=== PATIENT | male | born 1955 | race Caucasian/White ===

== ENCOUNTER → 2016-11-30 | Outpatient (CLI) | payer OTHER | LOC: KOH-I 10:52 | DX: R05 Cough (principal); R06.2 Wheezing | CPT/HCPCS: 71020 ==

== ENCOUNTER → 2016-12-08 | Outpatient (CLI) | payer OTHER | LOC: KOH-I 10:42 | DX: J40 Bronchitis, not specified as acute or chronic (principal); Z88.0 Allergy status to penicillin | CPT/HCPCS: 71020 ==